=== PATIENT | female | born 1985 | race African-American/Black ===

== ENCOUNTER 2018-05-23 06:21 | Emergency (ER) | payer MEDICAID ==
[2018-05-23 06:31] VITALS: BP 117/91
[2018-05-23] MEDS ORDERED: traMADol 50 MG TABLET PO STA (06:51)
--- NOTE | 2018-05-23 06:55 | ED Physician Documentation ---
PD HPI NECK PAIN - Stated complaint Stated Complaint: NECK PX - Chief complaint Chief Complaint: Heent - History obtained from History obtained from: Patient - History of Present Illness Timing - onset: How many days ago (3) Timing - details: Gradual onset Location: Right Quality: Pain Worsened by: Movement Similar symptoms before: Has not had sx before - Additional information Additional information: The patient is a 33-year-old female who presents with pain in the right posterior neck. 3 days ago she noticed a "knot" at the base of her skull on the right side. Since this time she has developed pain with cervical range of motion. It became worse this morning, especially when trying to turn her head to the left. She reports associated headache. She denies fever, sore throat, earache, or difficulty breathing. She denies any recent traumatic injury. She denies history of similar symptoms in the past. 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 Review of Systems Constitutional: denies: Fever Eyes: denies: Irritation Ears: denies: Ear pain Nose: denies: Congestion Throat: denies: Sore throat Cardiac: denies: Chest pain / pressure Respiratory: denies: Dyspnea, Cough GI: denies: Abdominal Pain, Nausea, Vomiting : denies: Dysuria Skin: denies: Rash Musculoskeletal: reports: Neck pain. denies: Extremity pain Neurologic: reports: Headache. denies: Focal weakness, Numbness PD PAST MEDICAL HISTORY - Past Medical History Past Medical History: No Endocrine/Autoimmune: None - Past Surgical History Past Surgical History: Yes /SALVAGER: section - Present Medications Home Medications: Ambulatory Orders Medication Instructions Recorded Confirmed Cyclobenzaprine [Flexeril] 10 mg PO TID PRN #20 tablet 05/23/18 traMADol [Ultram] 50 mg PO Q4-6H PRN #15 tablet 05/23/18 - Allergies Allergies/Adverse Reactions: Allergies Allergy/AdvReac Type Severity Reaction Status Date / Time No Known Drug Allergies Allergy Verified 05/23/18 06:31 - Social History Does the pt smoke?: No Smoking Status: Never smoker Does the pt drink ETOH?: No Does the pt have substance abuse?: No - Immunizations Immunizations are current?: Yes PD ED PE NORMAL - Vitals Vital signs reviewed: Yes (Mild diastolic hypertension initially.) - General General: Alert and oriented X 3, Well developed/nourished, Other (Holding her head at midline.) - HEENT HEENT: Atraumatic, EOMI, Ears normal, Moist mucous membranes, Pharynx benign - Neck Neck: No bony TTP, Other (There is a mildly enlarged posterior cervical lymph node on the right. There is tenderness to palpation of the right paracervical musculature. No tenderness along the spinous processes. She demonstrates decreased cervical range of motion secondary to pain. There is no meningismus.) - Cardiac Cardiac: RRR, No murmur - Respiratory Respiratory: No respiratory distress, Clear bilaterally - Abdomen Abdomen: Soft, Non tender - Back Back: No CVA TTP, No spinal TTP - Derm Derm: No rash - Extremities Extremities: No tenderness to palpate, No edema, No calf tenderness / cord - Neuro Neuro: Alert and oriented X 3, No motor deficit, No sensory deficit Results - Vitals Vitals: Oxygen O2 Source Room air PD MEDICAL DECISION MAKING - ED course Complexity details: considered differential, d/w patient, d/w family ED course: The patient's presentation is significant for a right posterior cervical reactive lymph node, and associated cervical muscle spasm. There is no evidence of scalp, neck, or pharyngeal infection detected. Her examination does not suggest meningitis. Treatment in the emergency department included administration of tramadol, 50 mg orally. She is being discharged with prescriptions for Flexeril and for tramadol, 10 tablets. I discussed with her and her male able bodied watchman symptomatic treatment and outpatient follow-up, as well as potentially worrisome signs or symptoms that should prompt reevaluation in the emergency department. Departure - Departure Disposition: 01 Home, Self Care Clinical Impression: Neck muscle spasm, Posterior cervical adenopathy Condition: Stable Instructions: ED Spasm Neck No Injury Follow-Up: Travis Bowens MD [Physician No Access] - Prescriptions: Cyclobenzaprine [Flexeril] 10 mg PO TID PRN #20 tablet PRN Reason: Spasms traMADol [Ultram] 50 mg PO Q4-6H PRN #15 tablet PRN Reason: Pain Comments: Apply ice pack to the sore area intermittently for the next 2 or 3 days. You can use Tylenol or ibuprofen for anti-inflammatory effect. You can use Flexeril as prescribed if needed for muscle spasm. You can use tramadol as prescribed if needed for pain. Try to increase range of motion by gently rotating your head. Follow-up with your primary physician within 1-2 weeks. Call to schedule appointment. Return to the emergency department if you develop increasing neck pain, increasing headache, or otherwise worsening symptoms. Discharge Date/Time: 05/23/18 07:02
== END 2018-05-23 07:02 | disposition home or self-care (01) ==
LOC: ED 06:21
DX: M62.838 Other muscle spasm (principal); R59.9 Enlarged lymph nodes, unspecified
CPT/HCPCS: 99283; A9270

== ENCOUNTER 2018-08-13 22:30 | Emergency (ER) | payer SELFPAY ==
[2018-08-13 23:10] LABS: BASOPHILS % (AUTO) 0.3 %; EOSINOPHILS % (AUTO) 0.3 %; HGB - HEMOGLOBIN 12.7 g/dL (12.0-16.0); LYMPHOCYTES # (AUTO) 0.3 10^3/uL (1.5-3.5); LYMPHOCYTES % (AUTO) 6.4 %; MEAN CORPUSCULAR HEMOGLOBIN 28.4 pg (27.0-31.0); MEAN CORPUSCULAR HGB CONC 33.6 g/dL (32.0-36.0); MEAN CORPUSCULAR VOLUME 84.4 fL (81.0-99.0); MEAN PLATELET VOLUME 7.3 fL (7.9-10.8); MONOCYTES # (AUTO) 0.7 10^3/uL (0.0-1.0); NEUTROPHILS # (AUTO) 4.2 10^3/uL (1.5-6.6); PLT - PLATELET COUNT 219 10^3/uL (130-450); RED BLOOD COUNT 4.47 10^6/uL (4.20-5.40); RED CELL DISTRIBUTION WIDTH 14.4 % (12.0-15.0); WHITE BLOOD COUNT 5.3 x10^3/uL (4.8-10.8)
[2018-08-13 23:24] LABS: ALBUMIN 4.7 g/dL (3.2-5.5); ALBUMIN/GLOBULIN RATIO 1.3 (1.0-2.2); BILIRUBIN,TOTAL 0.7 mg/dL (0.2-1.0); CALCIUM 9.2 mg/dL (8.5-10.3); CREATININE 0.7 mg/dL (0.4-1.0); TOTAL PROTEIN 8.2 g/dL (6.7-8.2)
[2018-08-13] MEDS ORDERED: DEXAMETHASONE 10 MG/ML VIAL IVP STA (23:25)
[2018-08-13] MEDS ORDERED: ACETAMINOPHEN 325 MG TABLET PO STA (23:25)
--- NOTE | 2018-08-13 23:27 | ED Physician Documentation ---
PD HPI URI - Stated complaint Stated Complaint: SOA/FEVER/CHILLS - Chief complaint Chief Complaint: Cardiac - History obtained from History obtained from: Patient, Family - History of Present Illness Timing - onset: Enter time (0500), Today Timing duration: Days (1) Timing details: Abrupt onset, Still present Associated symptoms: Fever, Chills, Sweats, Nasal congestion, Rhinorrhea, Dry cough, NVD Improves by: Rest, Medication Similar symptoms before: Has not had sx before Recently seen: Not recently seen - Additional information Additional information: 33-year-old female awoke at 5:00 this morning to work by 6:00 in the morning she noted that she was fever and sweating and she has had symptoms all day long. She is developed a cough chills muscle spasms in her thighs and vomiting. She states the vomiting is happening from coughing super hard. She denies any pain in her ears she denies a sore throat. Review of Systems Constitutional: reports: Fever, Chills, Myalgias, Fatigue, Sweats Eyes: denies: Decreased vision Ears: denies: Ear pain Nose: reports: Rhinorrhea / runny nose, Congestion Throat: denies: Sore throat Cardiac: denies: Chest pain / pressure, Palpitations Respiratory: reports: Dyspnea, Cough GI: reports: Vomiting. denies: Abdominal Pain : denies: Dysuria, Frequency Skin: denies: Rash Musculoskeletal: reports: Extremity pain. denies: Neck pain, Back pain Neurologic: denies: Generalized weakness, Focal weakness, Numbness PD PAST MEDICAL HISTORY - Past Medical History Endocrine/Autoimmune: None - Past Surgical History Past Surgical History: Yes /ABATEMENT WORKER: section - Present Medications Home Medications: Ambulatory Orders Medication Instructions Recorded Confirmed Cyclobenzaprine [Flexeril] 10 mg PO TID PRN #20 tablet 05/23/18 traMADol [Ultram] 50 mg PO Q4-6H PRN #15 tablet 05/23/18 Oseltamivir [Tamiflu] 75 mg PO BID #10 capsule 08/13/18 - Allergies Allergies/Adverse Reactions: Allergies Allergy/AdvReac Type Severity Reaction Status Date / Time No Known Drug Allergies Allergy Verified 08/13/18 22:40 - Social History Does the pt smoke?: No Smoking Status: Never smoker Does the pt drink ETOH?: No Does the pt have substance abuse?: No - Immunizations Immunizations are current?: Yes PD ED PE NORMAL - Vitals Vital signs reviewed: Yes (tachy and hypertensive) - General General: Alert and oriented X 3, No acute distress, Well developed/nourished - HEENT HEENT: Atraumatic, PERRL, EOMI, Ears normal, Moist mucous membranes, Pharynx benign, Dentition benign - Neck Neck: Supple, no meningeal sign, No bony TTP - Cardiac Cardiac: RRR, No murmur - Respiratory Respiratory: No respiratory distress, Clear bilaterally - Abdomen Abdomen: Soft, Non tender - Back Back: No CVA TTP, No spinal TTP - Derm Derm: Normal color, Warm and dry, No rash - Extremities Extremities: No deformity, No edema - Neuro Neuro: Alert and oriented X 3, digital campaign manager 2-12 intact, No motor deficit, No sensory deficit, Normal speech Eye Opening: Spontaneous Motor: Obeys Commands Verbal: Oriented GCS Score: 15 - Psych Psych: Normal mood, Normal affect Results - Vitals Vitals: Vital Signs - 24 hr 08/13/18 08/14/18 22:30 00:49 Temperature 36.6 C Heart Rate 109 H 95 Respiratory 16 12 Rate Blood Pressure 124/82 H 122/88 H O2 Saturation 100 99 Oxygen O2 Source Room air - EKG (time done) 2246 Rate: Rate (enter#) (101) Rhythm: Sinus tachycardia Ischemia: Normal ST segments Compare to prior EKG: Old EKG unavailable Computer interpretation: Agree with computer - Labs Labs: Laboratory Tests 08/13/18 08/13/18 08/13/18 22:50 22:50 22:50 WBC 5.3 RBC 4.47 Hgb 12.7 Hct 37.7 MCV 84.4 MCH 28.4 MCHC 33.6 RDW 14.4 Plt Count 219 MPV 7.3 L Neut # (Auto) 4.2 Lymph # (Auto) 0.3 L [place] # (Auto) 0.7 Eos # (Auto) 0.0 Baso # (Auto) 0.0 Absolute Nucleated RBC 0.00 Nucleated RBC % 0.0 Sodium 135 Potassium 2.9 L Chloride 105 Carbon Dioxide 21 Anion Gap 9.0 BUN 9 Creatinine 0.7 Estimated GFR (MDRD) 118 Glucose 91 Calcium 9.2 Total Bilirubin 0.7 AST 24 ALT 22 Alkaline Phosphatase 60 Troponin I < 0.04 Total Protein 8.2 Albumin 4.7 Globulin 3.5 Albumin/Globulin Ratio 1.3 Lipase 21 L Influenza A (Rapid) Influenza B (Rapid) 08/13/18 23:13 WBC RBC Hgb Hct MCV MCH MCHC RDW Plt Count MPV Neut # (Auto) Lymph # (Auto) Carter # (Auto) Eos # (Auto) Baso # (Auto) Absolute Nucleated RBC Nucleated RBC % Sodium Potassium Chloride Carbon Dioxide Anion Gap BUN Creatinine Estimated GFR (MDRD) Glucose Calcium Total Bilirubin AST ALT Alkaline Phosphatase Troponin I Total Protein Albumin Globulin Albumin/Globulin Ratio Lipase Influenza A (Rapid) POSITIVE H Influenza B (Rapid) Negative - Rads (name of study) chest 1 veiw Radiology: Prelim report reviewed (Impression: Normal single view chest.), EMP read indepedently, See rad report Procedures - IVC sono (time) 1120 Bedside IVC sono: IVC measures (cm) (1.9), IVC collapsed c insp (cm) (0.89), Euvolemia PD MEDICAL DECISION MAKING - ED course Complexity details: reviewed results, re-evaluated patient, considered differential, d/w patient, d/w family ED course: 33 y/o female with acute onset of symptoms has influenza. Departure - Departure Disposition: 01 Home, Self Care Clinical Impression: Influenza A, Hypokalemia Condition: Stable Instructions: Hypokalemia Dc, Diet High Potassium Dc, ED Flu Follow-Up: Travis Bowesn MD [Primary Care Provider] - Prescriptions: Oseltamivir [Tamiflu] 75 mg PO BID #10 capsule Forms: Activity restrictions Discharge Date/Time: 08/14/18 00:54
--- NOTE | 2018-08-13 23:28 | XRAY Report ---
Reason: Chest Pain Procedure Date: 08/13/2018 Accession Number: [id number] / [id number] Procedure: XR - Chest 1 View X-Ray CPT Code: 44315 FULL RESULT: EXAM: CHEST RADIOGRAPHY EXAM DATE: 08/13/2018 11:20 PM. CLINICAL HISTORY: Chest Pain. COMPARISON: None. TECHNIQUE: 1 view. FINDINGS: Lungs/Pleura: No focal opacities evident. No pleural effusion. No pneumothorax. Mediastinum: Within exam limitations, the cardiomediastinal contour is normal. Other: None. IMPRESSION: Normal single view chest. RADIA
[2018-08-13] MEDS ORDERED: POTASSIUM BICARB 25 MEQ TABLET PO STA (23:29)
[2018-08-13] MEDS ORDERED: POTASSIUM CHLOR 10 MEQ/100 ML 10 MEQ/100 ML BAG IV ONE (23:30)
[2018-08-13] MEDS ORDERED: OSELTAMIVIR 75 MG CAPSULE PO STA (23:53)
[2018-08-14 00:50] VITALS: BP 122/88
== END 2018-08-14 00:54 | disposition home or self-care (01) ==
LOC: ED 22:30
DX: J10.1 Influenza due to other identified influenza virus with other respiratory manifestations (principal); E87.6 Hypokalemia; R00.0 Tachycardia, unspecified
CPT/HCPCS: 36415; 71045; 80053; 83690; 84484; 85025; 87275; 87276; 93005; 96374; 99283; 99284; A9270

== ENCOUNTER 2020-05-10 19:29 | Emergency (ER) | payer MEDICAID ==
[2020-05-10 20:05] LABS: BASOPHILS % (AUTO) 0.3 %; EOSINOPHILS % (AUTO) 0.3 %; HGB - HEMOGLOBIN 13.4 g/dL (12.0-16.0); LYMPHOCYTES # (AUTO) 1.9 10^3/uL (1.5-3.5); LYMPHOCYTES % (AUTO) 16.6 %; MEAN CORPUSCULAR HEMOGLOBIN 28.9 pg (27.0-31.0); MEAN CORPUSCULAR HGB CONC 33.9 g/dL (32.0-36.0); MEAN CORPUSCULAR VOLUME 85.1 fL (81.0-99.0); MEAN PLATELET VOLUME 7.9 fL (7.9-10.8); MONOCYTES # (AUTO) 0.7 10^3/uL (0.0-1.0); MONOCYTES % (AUTO) 5.8 %; NEUTROPHILS # (AUTO) 8.9 10^3/uL (1.5-6.6); NEUTROPHILS % (AUTO) 76.6 %; PLT - PLATELET COUNT 501 10^3/uL (130-450); RED BLOOD COUNT 4.64 10^6/uL (4.20-5.40); RED CELL DISTRIBUTION WIDTH 13.4 % (12.0-15.0); WHITE BLOOD COUNT 11.6 x10^3/uL (4.8-10.8)
[2020-05-10 20:18] LABS: ALBUMIN 3.6 g/dL (3.2-5.5); BILIRUBIN,TOTAL 0.5 mg/dL (0.2-1.0); CALCIUM 9.5 mg/dL (8.5-10.3); CREATININE 0.8 mg/dL (0.4-1.0); TOTAL PROTEIN 7.2 g/dL (6.7-8.2)
[2020-05-10 20:21] LABS: BILIRUBIN,URINE NEGATIVE (NEGATIVE); GLUCOSE, URINE (UA) NEGATIVE (NEGATIVE); KETONES,URINE (UA) NEGATIVE (NEGATIVE); LEUKOCYTE ESTERASE, URINE LARGE (NEGATIVE); NITRITE,URINE NEGATIVE (NEGATIVE); OCCULT BLOOD,URINE LARGE (NEGATIVE); PH,URINE 7.5 PH (5.0-7.5); PROTEIN,URINE NEGATIVE (NEGATIVE); UROBILINOGEN,URINE 0.2 (NORMAL) E.U./dL (NORMAL)
[2020-05-10] MEDS ORDERED: MAG HYDROX/AL HYDROX/SIMETH 30 ML UDC PO STA (20:27)
[2020-05-10] MEDS ORDERED: LIDOCAINE VISCOUS 2% 15 ML UDC MM STA (20:27)
--- NOTE | 2020-05-10 20:28 | ED Physician Documentation ---
PD HPI ABD PAIN - Stated complaint Stated Complaint: ABD PAIN - Chief complaint Chief Complaint: Abd Pain - History obtained from History obtained from: Patient - Additional information Additional information: She is 10 days from a . For the last 5 days she has had unrelenting epigastric and left upper quadrant pain. She was taking a lot of ibuprofen up until the last few days. She is nauseous after she eats and the pain does get slightly worse after she eats. No history of abdominal surgeries other than prior . 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 05/10/20 Ondansetron Odt [Zofran] 4 mg TL Q6H PRN #10 tablet 05/10/20 - Allergies Allergies/Adverse Reactions: Allergies Allergy/AdvReac Type Severity Reaction Status Date / Time No Known Drug Allergies Allergy Verified 05/10/20 19:35 - Social History Does the pt smoke?: No Smoking Status: Never smoker Does the pt drink ETOH?: No Does the pt have substance abuse?: No - Immunizations Immunizations are current?: Yes - POLST Patient has POLST: No PD ED PE NORMAL - Vitals Vital signs reviewed: Yes - General General: Alert and oriented X 3, No acute distress - HEENT HEENT: PERRL, EOMI - Neck Neck: Supple, no meningeal sign, No bony TTP - Cardiac Cardiac: RRR, No murmur - Respiratory Respiratory: No respiratory distress, Clear bilaterally - Abdomen Abdomen: Normal bowel sounds, Other (Mild left upper quadrant and epigastric tenderness without surgical signs) - Back Back: No CVA TTP, No spinal TTP - Derm Derm: Normal color, Warm and dry - Extremities Extremities: No edema, No calf tenderness / cord - Neuro Neuro: Alert and oriented X 3, Normal speech Results - Vitals Vitals: Vital Signs - 24 hr 05/10/20 05/10/20 05/10/20 19:35 19:55 20:33 Temperature 36.8 C Heart Rate 103 H 70 Respiratory 18 16 16 Rate Blood Pressure 133/94 H 148/100 H O2 Saturation 94 100 05/10/20 05/10/20 05/10/20 20:45 20:55 21:09 Temperature Heart Rate 91 84 Respiratory 17 15 15 Rate Blood Pressure 146/94 H O2 Saturation 100 100 05/10/20 21:14 Temperature Heart Rate Respiratory 16 Rate Blood Pressure O2 Saturation Oxygen O2 Source Room air - Labs Labs: Laboratory Tests 05/10/20 05/10/20 05/10/20 19:45 20:00 20:00 WBC 11.6 H RBC 4.64 Hgb 13.4 Hct 39.5 MCV 85.1 MCH 28.9 MCHC 33.9 RDW 13.4 Plt Count 501 H MPV 7.9 Neut # (Auto) 8.9 H Lymph # (Auto) 1.9 [place] # (Auto) 0.7 Eos # (Auto) 0.0 Baso # (Auto) 0.0 Absolute Nucleated RBC 0.00 Nucleated RBC % 0.0 Sodium 138 Potassium 3.4 L Chloride 103 Carbon Dioxide 21 Anion Gap 14.0 H BUN 6 Creatinine 0.8 Estimated GFR (MDRD) 100 Glucose 94 Calcium 9.5 Total Bilirubin 0.5 AST 21 ALT 19 Alkaline Phosphatase 107 Total Protein 7.2 Albumin 3.6 Globulin 3.6 Albumin/Globulin Ratio 1.0 Lipase 21 L Urine Color YELLOW Urine Clarity CLEAR Urine pH 7.5 Ur Specific [place] 1.015 Urine Protein NEGATIVE Urine Glucose (UA) NEGATIVE Urine Ketones NEGATIVE Urine Occult Blood LARGE H Urine Nitrite NEGATIVE Urine Bilirubin NEGATIVE Urine Urobilinogen 0.2 (NORMAL) Ur Leukocyte Esterase LARGE H Urine RBC 0-5 Urine WBC 6-10 H Ur Squamous Epith Cells FEW Squamous Urine Bacteria Few Urine Mucus Few Strands Ur Microscopic Review INDICATED Urine Culture Comments INDICATED PD MEDICAL DECISION MAKING - ED course ED course: 35-year-old woman about 10 days presents with left upper quadrant pain. She had been taking a lot of ibuprofen exam and her history and physical is consistent with gastritis. Labs are relatively unremarkable. Note made of the positive urinalysis but given the lack of urinary symptoms suspect this is spurious. She did get relief with a GI cocktail and Zofran. Departure - Departure Disposition: Home, Self Care Clinical Impression: Gastritis Qualifiers: Gastritis type: unspecified gastritis Chronicity: acute Gastritis bleeding: without bleeding Qualified Code(s): K29.00 - Acute gastritis without bleeding Condition: Good Record reviewed to determine appropriate education?: Yes Instructions: ED PUD Vs Gastritis Prescriptions: HYDROcod/ACETAM 5/325 [[place] 5/325] 1 - 2 tab PO Q6H PRN #15 tablet PRN Reason: Pain Omeprazole 40 mg PO DAILY #30 capsule. Ondansetron Odt [Zofran] 4 mg TL Q6H PRN #10 tablet PRN Reason: Nausea / Vomiting Comments: With the breast-feeding try to decrease or minimize the use of hydrocodone is much as possible. The other medications should help within a day or 2. Return if worsening or if you develop new or worrisome feet symptoms including but not limited to fever, bloody vomit. Follow-up with your doctor regardless. Discharge Date/Time: 05/10/20 21:22
[2020-05-10 20:31] LABS: CLARITY,URINE CLEAR (CLEAR)
[2020-05-10] MEDS ORDERED: ONDANSETRON ODT 4 MG TABLET TL STA (20:34)
[2020-05-10 20:37] LABS: RBC,URINE 0-5 /HPF (0-5); SQUAMOUS EPITHELIAL CELL,UR FEW Squamous (<= Few)
[2020-05-10 20:38] LABS: BACTERIA,URINE Few /HPF (None Seen); MUCUS,URINE Few Strands
[2020-05-10] MEDS ORDERED: ONDANSETRON ODT 4 MG Prepack 2 TL STA (21:04)
[2020-05-10] MEDS ORDERED: HYDROcod/ACET 5/325 Prepack 4 PO STA (21:04)
[2020-05-10] MEDS ORDERED: PANTOPRAZOLE 40 MG TABLET PO STA (21:04)
[2020-05-10 21:10] VITALS: BP 146/94
== END 2020-05-10 21:22 | disposition home or self-care (01) ==
LOC: ED 19:29
DX: O99.63 Diseases of the digestive system complicating the puerperium (principal); K29.00 Acute gastritis without bleeding
CPT/HCPCS: 36415; 80053; 81001; 83690; 85025; 87086; 99283; 99284; A9270; Q0162; 81003